=== PATIENT | female | born 1935 | race African-American/Black ===

== ENCOUNTER 2019-12-06 01:48 | Inpatient (IN) | payer OTHER ==
[~2019-12-06] VITALS: Ht 170.2 cm; Wt 105.2 kg
[2019-12-06] VITALS (8 sets, daily range): BP systolic 131–163; BP diastolic 67–89
[2019-12-06] MEDS ORDERED: METHYLPREDNISOLONE SOD SUCC 125 MG/2 ML VIAL IV STA (01:53)
[2019-12-06] MEDS ORDERED: IPRATROPIUM BROMIDE (0.02%) 0.5MG/2.5ML NEB HHN STA (01:53)
[2019-12-06] MEDS ORDERED: ALBUTEROL (0.083%) 2.5MG/3ML NEB HHN STA (01:53)
[2019-12-06 02:17] LABS: BG BASE EXCESS 2.5 mmol/L (-2.0-2.0); BG BILEVEL POS AIRWAY PRESSURE 15/5; BG CARBOXYHEMOGLOBIN 0.1 % (0.5-1.5); BG DEOXYHEMOGLOBIN 0.9 % (0.0-5.0); BG FRACTION INSPIRED OXYGEN 50; BG HCO3 ACT 29.6 mmol/L (22.0-26.0); BG METHEMOGLOBIN 0.1 % (0.0-1.5); BG OXYGEN SATURATION 99.1 % (92.0-98.5); BG OXYHEMOGLOBIN 98.9 % (94.0-97.0); BG PCO2 57.8 mmHg (35.0-45.0); BG PH 7.327 (7.350-7.450); BG PO2 203.7 mmHg (75.0-100.0); BG SAMPLE SITE LEFT RADIAL; BG TOTAL HEMOGLOBIN 12.1 g/dL (12.0-18.0); BG VENT MODE MASK - BIPAP
[2019-12-06 02:31] LABS: BASOPHILS % 1.2 % (0.0-2.0); EOSINOPHILS % 3.1 % (0.0-5.0); HEMATOCRIT. 37.8 % (36.0-48.0); HEMOGLOBIN. 12.2 g/dL (12.0-16.0); LYMPHOCYTES % 36.5 % (20.0-50.0); MEAN CORPUSCULAR HEMOGLOBIN 32.3 pg (28.0-32.0); MEAN CORPUSCULAR VOLUME 99.6 fL (81.0-99.0); MEAN PLATELET VOLUME 10.7 fl (7.4-10.4); NEUTROPHILS % 54.2 % (40.0-76.0); PLATELET 280 x1000/uL (130-400); RED BLOOD CELL COUNT 3.79 mill/uL (4.2-5.4); RED CELL DISTRIBUTION WIDTH 16.7 % (11.6-14.6)
[2019-12-06 02:39] LABS: CHLORIDE 110 mEq/L (98-107)
[2019-12-06] MEDS ORDERED: ZOLPIDEM TARTRATE 5MG TABLET PO PRN (06:45)
[2019-12-06] MEDS ORDERED: GUAIFENESIN 200MG/10ML SUGAR FREE UDC PO PRN (06:45)
[2019-12-06] MEDS ORDERED: LORAZEPAM 0.5MG TABLET PO PRN (06:45)
[2019-12-06] MEDS ORDERED: DOCUSATE SODIUM 100MG CAPSULE PO PRN (06:45)
[2019-12-06] MEDS ORDERED: ACETAMINOPHEN 325MG TABLET PO PRN ×2 (06:45)
[2019-12-06] MEDS ORDERED: NITROGLYCERIN 0.4MG TABLET SL SL PRN (06:45)
[2019-12-06] MEDS ORDERED: LEVOFLOXACIN 500MG PREMIX 100 ML IV SCH ×2 (06:45→09:00)
[2019-12-06] MEDS ORDERED: CLONIDINE 0.1MG TABLET PO PRN (06:45)
[2019-12-06] MEDS ORDERED: ONDANSETRON HCL 4MG/2ML INJ IV PRN (06:45)
[2019-12-06] MEDS ORDERED: IPRATROPIUM/ALBUTEROL 0.5-3(2.5)MG/3ML NEB NEB PRN (06:45)
[2019-12-06] MEDS ORDERED: MAGNESIUM/ALUMINUM HYDROXIDE/SIMETHICONE 30ML UDC PO PRN (06:45)
[2019-12-06] MEDS ORDERED: TRAMADOL 50MG TABLET PO PRN (06:45)
[2019-12-06] MEDS ORDERED: LOSA50TA3 PO (07:19)
[2019-12-06] MEDS ORDERED: HYDR100T31 PO (07:19)
[2019-12-06] MEDS ORDERED: PRED10TA PO (07:19)
[2019-12-06] MEDS ORDERED: ISOS30TA11 PO (07:19)
[2019-12-06] MEDS: IPRATROPIUM/ALBUTEROL 0.5-3(2.5)MG/3ML NEB HHN SCH ×4 (08:22→21:25)
[2019-12-06] MEDS: ASCORBIC ACID 500 MG TABLET PO SCH ×2 (08:50→20:11)
[2019-12-06] MEDS: FAMOTIDINE 20MG TABLET PO SCH (08:50)
[2019-12-06] MEDS: ASPIRIN 325MG EC TABLET PO SCH (08:51)
[2019-12-06] MEDS: ZINC SULFATE 220 MG ( 50 ) CAPSULE PO SCH (08:51)
[2019-12-06] MEDS: GUAIFENESIN 600MG ER TABLET PO SCH ×2 (08:51→20:11)
[2019-12-06] MEDS: METHYLPREDNISOLONE SOD SUCC 125 MG/2 ML VIAL IV SCH ×3 (08:52→20:12)
[2019-12-06] MEDS ORDERED: ENOXAPARIN 40MG/0.4ML SYR SUBCUT SCH (09:00)
[2019-12-06] MEDS ORDERED: FAMOTIDINE 20MG TABLET PO SCH (09:00)
[2019-12-06] MEDS ORDERED: ASCORBIC ACID 500 MG TABLET PO SCH (09:00)
[2019-12-06 09:41] LABS: *AMPHETAMINES SCREEN URINE NEGATIVE (NEGATIVE); *BARBITURATES SCREEN URINE NEGATIVE (NEGATIVE); *BENZODIAZEPINES SCREEN URINE NEGATIVE (NEGATIVE); *COCAINE SCREEN URINE NEGATIVE (NEGATIVE); METHADONE URINE SCREEN NEGATIVE (NEGATIVE)
[2019-12-06 09:42] LABS: CANNABINOID URINE SCREEN NEGATIVE (NEGATIVE); OPIATES URINE SCREEN NEGATIVE (NEGATIVE); PHENCYCLIDINE URINE SCREEN NEGATIVE (NEGATIVE)
[2019-12-06 13:11] LABS: BG BASE EXCESS -0.4 mmol/L (-2.0-2.0); BG CARBOXYHEMOGLOBIN 0.3 % (0.5-1.5); BG DEOXYHEMOGLOBIN 2.3 % (0.0-5.0); BG FRACTION INSPIRED OXYGEN 28; BG HCO3 ACT 26.7 mmol/L (22.0-26.0); BG METHEMOGLOBIN 0.1 % (0.0-1.5); BG OXYGEN SATURATION 97.7 % (92.0-98.5); BG OXYHEMOGLOBIN 97.3 % (94.0-97.0); BG PCO2 55.1 mmHg (35.0-45.0); BG PH 7.304 (7.350-7.450); BG PO2 107.5 mmHg (75.0-100.0); BG SAMPLE SITE RIGHT RADIAL; BG TOTAL HEMOGLOBIN 12.3 g/dL (12.0-18.0); BG VENT MODE NASAL CANNULA
[2019-12-06 15:56] LABS: CREATINE KINASE MB FRACTION 3.1 ng/mL (0.5-3.6)
[2019-12-06] MEDS: ENOXAPARIN 30MG/0.3ML SYR SUBCUT SCH (20:12)
[2019-12-06] MEDS ORDERED: ATORVASTATIN CALCIUM 10MG TABLET PO SCH (21:00)
[2019-12-07] VITALS (8 sets, daily range): BP systolic 111–131; BP diastolic 51–102
[2019-12-07 00:32] LABS: CREATINE KINASE MB FRACTION 2.3 ng/mL (0.5-3.6)
[2019-12-07] MEDS: IPRATROPIUM/ALBUTEROL 0.5-3(2.5)MG/3ML NEB HHN SCH ×3 (02:19→14:03)
[2019-12-07] MEDS: METHYLPREDNISOLONE SOD SUCC 125 MG/2 ML VIAL IV SCH (04:32)
[2019-12-07 07:42] LABS: CHLORIDE 110 mEq/L (98-107)
[2019-12-07 07:43] LABS: HEMATOCRIT. 32.5 % (36.0-48.0); HEMOGLOBIN. 10.6 g/dL (12.0-16.0); MEAN CORPUSCULAR HEMOGLOBIN 32.8 pg (28.0-32.0); MEAN CORPUSCULAR VOLUME 100.8 fL (81.0-99.0); MEAN PLATELET VOLUME 10.8 fl (7.4-10.4); PLATELET 197 x1000/uL (130-400); RED BLOOD CELL COUNT 3.22 mill/uL (4.2-5.4); RED CELL DISTRIBUTION WIDTH 17.1 % (11.6-14.6)
[2019-12-07 07:53] LABS: PHOSPHORUS 4.4 mg/dL (2.5-4.9)
[2019-12-07] MEDS: ZINC SULFATE 220 MG ( 50 ) CAPSULE PO SCH (08:25)
[2019-12-07] MEDS: ASCORBIC ACID 500 MG TABLET PO SCH (08:25)
[2019-12-07] MEDS: GUAIFENESIN 600MG ER TABLET PO SCH (08:25)
[2019-12-07] MEDS: ASPIRIN 325MG EC TABLET PO SCH (08:25)
[2019-12-07] MEDS: ENOXAPARIN 30MG/0.3ML SYR SUBCUT SCH (08:26)
[2019-12-07] MEDS: FAMOTIDINE 20MG TABLET PO SCH (08:26)
[2019-12-07] MEDS ORDERED: LEVOFLOXACIN 250MG PREMIX 50 ML IV SCH (11:00)
[2019-12-07 11:10] LABS: PLATELET ESTIMATE NORMAL
[2019-12-07] MEDS ORDERED: METHYLPREDNISOLONE SOD SUCC 40 MG/ML VIAL IV SCH (13:30)
== END 2019-12-07 14:26 | disposition short-term general hospital (02) | DRG 280 ==
LOC: ER 01:48 → UNDOADMIN 04:07 → 3WST 04:07 → MICUSO 04:07
PROVIDERS: ADMIT Internal Medicine; ATTEND Internal Medicine
PROC: 5A09357 Assistance with Respiratory Ventilation, Less than 24 Consecutive Hours, Continuous Positive Airway Pressure (ICD-10-PCS; principal; 2019-12-06)
DX: I21.4 Non-ST elevation (NSTEMI) myocardial infarction (principal); J96.02 Acute respiratory failure with hypercapnia; J96.01 Acute respiratory failure with hypoxia; J44.1 Chronic obstructive pulmonary disease with (acute) exacerbation; E87.0 Hyperosmolality and hypernatremia; I16.1 Hypertensive emergency; J45.901 Unspecified asthma with (acute) exacerbation; E66.9 Obesity, unspecified; I11.9 Hypertensive heart disease without heart failure; I25.10 Atherosclerotic heart disease of native coronary artery without angina pectoris; G47.30 Sleep apnea, unspecified; Z71.3 Dietary counseling and surveillance; Z68.36 Body mass index [BMI] 36.0-36.9, adult
CPT/HCPCS: 36415; 36600; 71045; 80053; 80061; 80305; 82375; 82550; 82553; 82805; 83036; 83735; 83880; 84100; 84484; 85025; 93005; 93306; 93970; 99291; J1650; J1956; J2930

== ENCOUNTER 2020-04-07 05:43 | Emergency (ER) | payer OTHER ==
[~2020-04-07 05:43] MED LIST: HYDR100T31 PO; ISOS30TA11 PO; LOSA50TA3 PO; PRED10TA PO
[2020-04-07] MEDS ORDERED: MORPHINE SULFATE 4 MG/ML CPJ (NOT FOR IM USE) IV STA (06:59)
[2020-04-07] MEDS ORDERED: ONDANSETRON HCL 4MG/2ML INJ IV STA (06:59)
[2020-04-07] MEDS ORDERED: ALBUTEROL (0.083%) 2.5MG/3ML NEB HHN STA (07:21)
[2020-04-07] MEDS ORDERED: IPRATROPIUM BROMIDE (0.02%) 0.5MG/2.5ML NEB HHN STA (07:21)
[2020-04-07 09:43] LABS: BASOPHILS % 1.3 % (0.0-2.0); EOSINOPHILS % 4.2 % (0.0-5.0); HEMATOCRIT. 35.1 % (36.0-48.0); HEMOGLOBIN. 11.4 g/dL (12.0-16.0); LYMPHOCYTES % 17.8 % (20.0-50.0); MEAN CORPUSCULAR HEMOGLOBIN 32.7 pg (28.0-32.0); MEAN CORPUSCULAR VOLUME 100.5 fL (81.0-99.0); MEAN PLATELET VOLUME 9.9 fl (7.4-10.4); MONOCYTES % 8.3 % (2.0-8.0); NEUTROPHILS % 68.4 % (40.0-76.0); PLATELET 200 x1000/uL (130-400); RED BLOOD CELL COUNT 3.49 mill/uL (4.2-5.4); RED CELL DISTRIBUTION WIDTH 17.9 % (11.6-14.6)
[2020-04-07 09:51] LABS: CHLORIDE 114 mEq/L (98-107)
[2020-04-07 13:28] VITALS: BP 132/71
== END 2020-04-07 13:49 | disposition short-term general hospital (02) ==
LOC: ER 05:43 → CANBEDREQ 20:08
DX: M54.9 Dorsalgia, unspecified (principal); I11.0 Hypertensive heart disease with heart failure; I50.21 Acute systolic (congestive) heart failure; E87.8 Other disorders of electrolyte and fluid balance, not elsewhere classified; D53.9 Nutritional anemia, unspecified; J45.909 Unspecified asthma, uncomplicated; Z79.899 Other long term (current) drug therapy; W18.39XA Other fall on same level, initial encounter; Y93.01 Activity, walking, marching and hiking; Y92.89 Other specified places as the place of occurrence of the external cause; Y99.8 Other external cause status
CPT/HCPCS: 36415; 71045; 72070; 80053; 83880; 84484; 85025; 93005; 94640; 96374; 96375; 99285; J2270; J2405

== ENCOUNTER 2020-11-04 07:43 | Emergency (ER) | payer OTHER ==
[~2020-11-04] VITALS: Ht 167.6 cm; Wt 90.0 kg
[2020-11-04 08:26] LABS: BASOPHILS % 1.3 % (0.0-2.0); EOSINOPHILS % 9.9 % (0.0-5.0); HEMOGLOBIN. 11.1 g/dL (12.0-16.0); LYMPHOCYTES % 22.4 % (20.0-50.0); MEAN CORPUSCULAR HEMOGLOBIN 32.4 pg (28.0-32.0); MEAN CORPUSCULAR VOLUME 99.3 fL (81.0-99.0); MEAN PLATELET VOLUME 10.4 fl (7.4-10.4); NEUTROPHILS % 59.4 % (40.0-76.0); PLATELET 236 x1000/uL (130-400); RED BLOOD CELL COUNT 3.43 mill/uL (4.2-5.4); RED CELL DISTRIBUTION WIDTH 17.9 % (11.6-14.6)
[2020-11-04 08:30] LABS: CHLORIDE 109 mEq/L (98-107)
[2020-11-04] MEDS ORDERED: IPRATROPIUM BROMIDE (0.02%) 0.5MG/2.5ML NEB HHN ONE (08:45)
[2020-11-04] MEDS ORDERED: ALBUTEROL (0.083%) 2.5MG/3ML NEB HHN ONE ×2 (08:45→09:45)
[2020-11-04] MEDS ORDERED: ASPIRIN 325MG TABLET PO ONE (09:00)
[2020-11-04] MEDS ORDERED: PREDNISONE 20MG TABLET PO SCH (09:00)
[2020-11-04] MEDS ORDERED: MAGNESIUM 2 G PREMIX 50 ML IV ONE (09:45)
[2020-11-04 12:50] VITALS: BP 156/69
== END 2020-11-04 13:10 | disposition short-term general hospital (02) ==
LOC: ER 07:43
DX: J96.01 Acute respiratory failure with hypoxia (principal); R77.8 Other specified abnormalities of plasma proteins; I10 Essential (primary) hypertension
CPT/HCPCS: 36415; 71045; 80053; 83880; 84484; 85025; 93005; 94640; 96365; 99291; J3475; J7512; 99285

== ENCOUNTER 2021-01-06 22:57 | Inpatient (IN) | payer OTHER ==
[~2021-01-06] VITALS: Ht 170.2 cm; Wt 68.5 kg
[2021-01-06] MEDS ORDERED: IPRATROPIUM BROMIDE (0.02%) 0.5MG/2.5ML NEB HHN STA (23:39)
[2021-01-06] MEDS ORDERED: LEVOFLOXACIN 750MG PREMIX 150 ML IV STA (23:39)
[2021-01-06] MEDS ORDERED: MAGNESIUM 2 G PREMIX 50 ML IV STA (23:39)
[2021-01-06] MEDS ORDERED: METHYLPREDNISOLONE SOD SUCC 125 MG/2 ML VIAL IV STA (23:39)
[2021-01-06] MEDS ORDERED: ALBUTEROL (0.083%) 2.5MG/3ML NEB HHN STA (23:39)
[2021-01-06 23:56] LABS: BG BASE EXCESS -1.2 mmol/L (-2.0-2.0); BG CARBOXYHEMOGLOBIN 0.3 % (0.5-1.5); BG DEOXYHEMOGLOBIN 0.6 % (0.0-5.0); BG FRACTION INSPIRED OXYGEN 100; BG HCO3 ACT 25.9 mmol/L (22.0-26.0); BG METHEMOGLOBIN 0.9 % (0.0-1.5); BG OXYGEN SATURATION 99.4 % (92.0-98.5); BG OXYHEMOGLOBIN 98.2 % (94.0-97.0); BG PCO2 54.9 mmHg (35.0-45.0); BG PH 7.291 (7.350-7.450); BG PO2 339.2 mmHg (75.0-100.0); BG SAMPLE SITE RIGHT RADIAL; BG TOTAL HEMOGLOBIN 10.8 g/dL (12.0-18.0); BG VENT MODE MASK - NRB
[2021-01-07] VITALS (13 sets, daily range): BP systolic 124–147; BP diastolic 57–81
[2021-01-07 00:21] LABS: BASOPHILS % 2.9 % (0.0-2.0); HEMATOCRIT. 32.1 % (36.0-48.0); HEMOGLOBIN. 10.6 g/dL (12.0-16.0); LYMPHOCYTES % 21.1 % (20.0-50.0); MEAN CORPUSCULAR HEMOGLOBIN 31.9 pg (28.0-32.0); MEAN CORPUSCULAR VOLUME 96.5 fL (81.0-99.0); MEAN PLATELET VOLUME 9.4 fl (7.4-10.4); MONOCYTES % 7.3 % (2.0-8.0); NEUTROPHILS % 54.7 % (40.0-76.0); PLATELET 290 x1000/uL (130-400); RED BLOOD CELL COUNT 3.33 mill/uL (4.2-5.4)
[2021-01-07 00:28] LABS: CHLORIDE 112 mEq/L (98-107)
[2021-01-07] MEDS ORDERED: HYDRALAZINE 20MG/ML VIAL IV ONE (00:30)
[2021-01-07] MEDS ORDERED: ALBUTEROL (0.083%) 2.5MG/3ML NEB HHN ONE ×2 (02:30→02:45)
[2021-01-07] MEDS ORDERED: ASPIRIN 325MG EC TABLET PO SCH (03:15)
[2021-01-07] MEDS ORDERED: NITROGLYCERIN OINT 1GM/INCH UDPKT TD SCH (03:15)
[2021-01-07] MEDS ORDERED: FUROSEMIDE 40MG/4ML VIAL IVP SCH (03:30)
[2021-01-07] MEDS ORDERED: POTASSIUM CHLORIDE INJ 40 MEQ in DEXT 5% WATER 250 ML IV SCH (04:00)
[2021-01-07] MEDS ORDERED: ONDANSETRON HCL 4MG/2ML INJ IV PRN (11:15)
[2021-01-07] MEDS ORDERED: GUAIFENESIN 200MG/10ML SUGAR FREE UDC PO PRN (11:15)
[2021-01-07] MEDS ORDERED: CLONIDINE 0.1MG TABLET PO PRN (11:15)
[2021-01-07] MEDS ORDERED: HYDRALAZINE 20MG/ML VIAL IV PRN (11:15)
[2021-01-07] MEDS ORDERED: DIPHENHYDRAMINE 50MG/ML VIAL IV PRN (11:15)
[2021-01-07] MEDS ORDERED: IPRATROPIUM/ALBUTEROL 0.5-3(2.5)MG/3ML NEB NEB PRN (11:15)
[2021-01-07] MEDS ORDERED: MAGNESIUM/ALUMINUM HYDROXIDE/SIMETHICONE 30ML UDC PO PRN (11:15)
[2021-01-07] MEDS ORDERED: ACETAMINOPHEN 325MG TABLET PO PRN ×2 (11:15)
[2021-01-07] MEDS ORDERED: POTASSIUM CHLORIDE INJ 40 MEQ in DEXT 5% WATER 250 ML IV NR (12:30)
[2021-01-07] MEDS: ENOXAPARIN 40MG/0.4ML SYR SUBCUT SCH (14:32)
[2021-01-07] MEDS: PANTOPRAZOLE SODIUM 40 MG/VIAL IV SCH (14:32)
[2021-01-07] MEDS: METHYLPREDNISOLONE SOD SUCC 125 MG/2 ML VIAL IV SCH ×2 (14:33→21:54)
[2021-01-07] MEDS: IPRATROPIUM/ALBUTEROL 0.5-3(2.5)MG/3ML NEB HHN SCH ×2 (15:09→20:56)
[2021-01-07] MEDS ORDERED: PNEUMOCOCCAL 23-VAL P-SAC VAC 0.5 ML IM ONE (15:15)
[2021-01-07 15:59] LABS: BG BASE EXCESS -1.7 mmol/L (-2.0-2.0); BG CARBOXYHEMOGLOBIN 0.3 % (0.5-1.5); BG DEOXYHEMOGLOBIN 5.1 % (0.0-5.0); BG FRACTION INSPIRED OXYGEN 30; BG HCO3 ACT 24.7 mmol/L (22.0-26.0); BG METHEMOGLOBIN 0.8 % (0.0-1.5); BG OXYGEN SATURATION 94.8 % (92.0-98.5); BG OXYHEMOGLOBIN 93.8 % (94.0-97.0); BG PCO2 49.4 mmHg (35.0-45.0); BG PH 7.317 (7.350-7.450); BG SAMPLE SITE RIGHT BRACHIAL; BG TOTAL HEMOGLOBIN 11.3 g/dL (12.0-18.0); BG VENT MODE NASAL CANNULA
[2021-01-07] MEDS: MONTELUKAST SODIUM 10MG TABLET PO SCH (18:40)
[2021-01-07] MEDS ORDERED: POTASSIUM CHLORIDE 20MEQ TABLET SR PO NR (21:12)
[2021-01-07] MEDS: ZOLPIDEM TARTRATE 5MG TABLET PO PRN (21:53)
[2021-01-07] MEDS ORDERED: MAGNESIUM HYDROXIDE 400MG/5ML 30ML UDC PO PRN (23:30)
[2021-01-08] VITALS (15 sets, daily range): BP systolic 110–141; BP diastolic 58–95
[2021-01-08] MEDS: IPRATROPIUM/ALBUTEROL 0.5-3(2.5)MG/3ML NEB HHN SCH ×4 (01:45→19:46)
[2021-01-08] MEDS: METHYLPREDNISOLONE SOD SUCC 125 MG/2 ML VIAL IV SCH (05:01)
[2021-01-08 06:45] LABS: HEMATOCRIT. 30.4 % (36.0-48.0); HEMOGLOBIN. 10.2 g/dL (12.0-16.0); MEAN CORPUSCULAR HEMOGLOBIN 32.1 pg (28.0-32.0); MEAN CORPUSCULAR VOLUME 96.1 fL (81.0-99.0); PLATELET 252 x1000/uL (130-400); RED BLOOD CELL COUNT 3.17 mill/uL (4.2-5.4)
[2021-01-08] MEDS: ENOXAPARIN 40MG/0.4ML SYR SUBCUT SCH (10:02)
[2021-01-08] MEDS: PANTOPRAZOLE SODIUM 40 MG/VIAL IV SCH (10:02)
[2021-01-08] MEDS: DOCUSATE SODIUM 100MG CAPSULE PO SCH ×2 (10:02→17:35)
[2021-01-08] MEDS: MONTELUKAST SODIUM 10MG TABLET PO SCH (17:35)
[2021-01-08 20:27] LABS: PLATELET ESTIMATE NORMAL
[2021-01-08] MEDS: METHYLPREDNISOLONE SOD SUCC 40 MG/ML VIAL IV SCH (21:45)
[2021-01-08] MEDS: ZOLPIDEM TARTRATE 5MG TABLET PO PRN (21:46)
[2021-01-09] VITALS (12 sets, daily range): BP systolic 125–152; BP diastolic 44–97
[2021-01-09] MEDS: IPRATROPIUM/ALBUTEROL 0.5-3(2.5)MG/3ML NEB HHN SCH ×5 (02:14→21:07)
[2021-01-09] MEDS: METHYLPREDNISOLONE SOD SUCC 40 MG/ML VIAL IV SCH (06:24)
[2021-01-09] MEDS: DOCUSATE SODIUM 100MG CAPSULE PO SCH ×2 (08:31→17:25)
[2021-01-09] MEDS ORDERED: FAMOTIDINE 20MG/2ML VIAL IV SCH ×2 (09:00)
[2021-01-09] MEDS ORDERED: ENOXAPARIN 30MG/0.3ML SYR SUBCUT SCH (10:00)
[2021-01-09] MEDS ORDERED: GUAIFENESIN-DM 200MG-20MG/10ML UDC PO PRN (15:00)
[2021-01-09] MEDS: MONTELUKAST SODIUM 10MG TABLET PO SCH (17:25)
[2021-01-09] MEDS ORDERED: METHYLPREDNISOLONE SOD SUCC 40 MG/ML VIAL IV SCH (18:00)
== END 2021-01-09 22:00 | disposition short-term general hospital (02) | DRG 189 ==
LOC: ER 22:57 → EDBEDREQSVC 01-07 09:23 → ENRESERV 01-07 11:03 → 3WST 01-07 13:23
PROVIDERS: ADMIT Internal Medicine; ATTEND Internal Medicine
PROC: 5A09357 Assistance with Respiratory Ventilation, Less than 24 Consecutive Hours, Continuous Positive Airway Pressure (ICD-10-PCS; principal; 2021-01-07)
DX: J96.01 Acute respiratory failure with hypoxia (principal); I21.A1 Myocardial infarction type 2; J45.901 Unspecified asthma with (acute) exacerbation; J98.11 Atelectasis; D64.9 Anemia, unspecified; D72.10 Eosinophilia, unspecified; I10 Essential (primary) hypertension; J44.9 Chronic obstructive pulmonary disease, unspecified; Z79.899 Other long term (current) drug therapy; Z82.49 Family history of ischemic heart disease and other diseases of the circulatory system
CPT/HCPCS: 36415; 36600; 71045; 80048; 80053; 82375; 82805; 83735; 83880; 84100; 84484; 85025; 93005; 94640; 94644; 94660; 99285; C9113; J0360; J1650; J1940; J1956; J2920; J2930; J3475; J3480; J3490; J7060